=== PATIENT | male | born 1950 | race Caucasian/White ===

== ENCOUNTER 2022-01-26 09:18 | Day surgery (SDC) | payer OTHER, MEDICARE ==
--- NOTE | 2022-01-23 16:18 | RAD REPORT ---
EXAM DESCRIPTION: RAD - Chest Pa And Lat (2 Views) - 01/23/2022 4:11 pm CLINICAL HISTORY: pre op for surgery Chest pain. COMPARISON: Chest Pa And Lat (2 Views) dated 01/12/2020 FINDINGS: The lungs are clear. The heart is normal in size. No displaced fractures. IMPRESSION: No acute or concerning finding suspected.
[2022-01-23 16:24] LABS: Absolute Lymphocytes (CBC) 1.4 K/uL (0.7-4.9); Hematocrit 32.7 % (39.6-49.0); Lymphocytes % 26.5 % (15.3-44.8); MPV 8.8 fL (7.6-11.3)
[2022-01-23 16:31] LABS: Potassium 3.9 mmol/L (3.5-5.1)
--- NOTE | 2022-01-24 07:13 | EKG ---
Test Date: 2022-01-23 Test Time: 14:52:12 [employer]: ULISES MEASUREMENT RESULTS: Intervals: Rate: 54 VA: 188 QRSD: 114 QT: 446 QTc: 422 [place]: P: 64 VA: 188 QRS: -7 T: 12 INTERPRETIVE STATEMENTS: Sinus bradycardia Low voltage QRS Nonspecific ST abnormality Abnormal ECG No previous ECG available for comparison Electronically Signed On 01-24-22 07:09:40 CDT by Freddie Fernandez
[2022-01-26] MEDS ORDERED: CEFAZOLIN/SWI 2gm 2 GM/20 ML SYR ONE (09:38)
[2022-01-26] MEDS ORDERED: Ringers Lactate 1,000 ML IV ONE (09:38)
[2022-01-26] MEDS ORDERED: CELECOXIB 100 MG CAPSULE ONE (12:08)
[2022-01-26] MEDS ORDERED: ACETAMINOPHEN 500 MG TAB ONE (12:08)
[2022-01-26 12:41] LABS: Protime INR 1.28
[2022-01-26] MEDS ORDERED: FENTANYL CITR 100 MCG/2 ML ONE ×2 (12:48→14:32)
[2022-01-26] MEDS ORDERED: propofoL 200 MG/20 ML VIAL IV ONE (12:48)
[2022-01-26] MEDS ORDERED: MIDAZOLAM HCL 2 MG/2 ML INJ ONE (12:49)
[2022-01-26] MEDS ORDERED: ROCURONIUM 50 MG/5 ML VIAL IV ONE (12:49)
[2022-01-26] MEDS ORDERED: LIDOCAINE 2% MPF 5 ML VIAL ONE (12:49)
[2022-01-26] MEDS ORDERED: BUPIVACAINE 0.25% PF 10 ML VIAL ONE (12:51)
[2022-01-26] MEDS ORDERED: ONDANSETRON 4 MG/2 ML VIAL ONE (12:51)
[2022-01-26] MEDS ORDERED: KETOROLAC 30 MG/ML INJ ONE (14:29)
[2022-01-26] MEDS ORDERED: dexAMETHasone 10 MG/ML VIAL ONE (14:29)
[2022-01-26] MEDS ORDERED: GLYCOPYRROLATE 0.2 MG/ML SYR ONE (14:45)
--- NOTE | 2022-01-26 14:57 | P.OP ---
Preoperative diagnosis: Bilateral Inguinal Hernia with small bowel incarceration Postoperative diagnosis: Bilateral Inguinal Hernia with small bowel incarceration Primary procedure: Open Bilateral Inguinal hernia repair with mesh Anesthesia: GETA + Local Estimated blood loss: <20cc Specimen: RIGHT hernia sack / cord lipoma, LEFT cord lipoma Findings: LARGE Right inguinal hernia with small bowel, left fat containing hernia Complications: None Implants: Bard Perfix Large plug and patch on LEFT, Small Perfix on RIGHT Transferred to: Recovery Room Condition: Good
[2022-01-26 16:14] VITALS: BP 152/60; TEMP 96.9; O2SAT 99
[2022-01-26] MEDS ORDERED: HYDROCODONE/APAP 5/325 MG TAB ONE (16:43)
--- NOTE | 2022-01-27 01:18 | OP ---
Date of Procedure: 01/26/2022 Surgeon: Philip Genao MD, Preoperative Diagnosis: Bilateral inguinal hernias with small bowel incarceration on right and fat i ncarceration on the left. Postoperative Diagnosis: Bilateral inguinal hernias with small bowel incarceration on right and fat incarceration on the left. Procedure Performed: Open bilateral inguinal hernia repair with mesh plug and patch system utilized. Anesthesia: General endotracheal plus local with 0.25% Marcaine. Estimated Blood Loss: Less than 20 mL. Specimen: 1.Right hernia sac and cord lipoma. 2.Left cord lipoma. Findings: 1.Large right indirect inguinal hernia with sac containing small bowel requiring adhesiolysis and re duction of small bowel back to the intraperitoneal space. 2.Left fat-containing inguinal hernia. 3.External oblique aponeurosis was thin and friable bilaterally. Implants: Bard PerFix large plug and patch hernia repair system on right, left was a small Bard PerF ix hernia plug and patch system. Disposition: Patient was transferred to the recovery room in good condition. Procedure In Detail: After informed consent was obtained, the patient was brought to the operating r oom, prepped and draped in the usual sterile fashion. After adequate anesthesia was achieved, I made an inguinal incision on the right side down to subcutaneous tissues. I dissected down through Campe r fat and Sandy fascia to expose the external oblique aponeurosis, which was found to be quite thin and friable. I opened this sharply and dissected down circumferentially after opening in its entiret y protecting the ilioinguinal nerve, I dissected down circumferentially around the spermatic cord and structures and located a large hernia sac. The hernia sac was dissected free from the spermatic cor d and structures using the combination of electrocautery and blunt dissection. Ultimately, after the hernia sac was mobilized, I open the hernia sac to reduce the incarcerated small bowel back to the i ntraperitoneal compartment with simple reduction after adhesiolysis performed of the hernia sac. The hernia sac was then ligated, imbricated, and sewn closed in a running fashion with a 2-0 PDS suture and reducing the preperitoneal space. At this point, a large Bard PerFix hernia plug system was brou ght into the field, hydrated appropriately and placed in the preperitoneal space, fanned out appropri ately, and secured using 2-0 PDS sutures. At this point, I then brought the hernia patch system and placed it below the spermatic cord structures, reconstitute the deep ring by securing the pubic tuber sarina and making the deep inguinal ring with a 2-0 PDS suture. Lateral edges were quite thin and friab le, as such I did not choose to secure these at this point either medially or laterally. At this poi nt, I irrigated the area copiously and closed the residual external oblique aponeurosis as well as de ep Camper fat and Sandy fascia with a 3-0 Vicryl suture in an interrupted fashion. I closed the malcolm p dermal layer using 3-0 Vicryl suture and the skin was then closed with a 4-0 Monocryl fashion. Benji mabond was placed over top. I then turned my attention to the left side, in a similar fashion made a dissection to the skin using a 15 blade down to subcutaneous tissue. After appropriate anesthetizin g skin in the inguinal area, I then dissected down through the Camper fat and Sandy fascia to expose the external oblique aponeurosis, which once again was found to be quite thin and friable. I opened it sharply and opened in its entirety protecting the ilioinguinal nerve. I then dissected down to t he spermatic cord and structures and encircled this with a [place] drain. I was able to find the her brenda sac at this point, which is small and only containing fat. At this point, I opened the hernia sa c and removed the fat and sent it off for pathologic examination. I then imbricated the sac in a sim ilar fashion using a 2-0 PDS, reduced the sac to the preperitoneal space and placed a small Bard PerF ix plug into this preperitoneal space and secured it with a single 2-0 PDS suture. I then brought th e hernia patch on, sized it appropriately, and reconstituted the inguinal ring and after placing the patch under the spermatic cord and structures, I secured the pubic tubercle and then used a simple 2- 0 PDS and similarly reconstitute the deep inguinal ring with a 2-0 PDS suture. Once again, the media l and lateral shelving edges were quite thin and friable, as such I opted not to secure the mesh to t he medial and lateral shelving edge at this point due to the friability of the tissue planes. I then irrigated the area copiously and closed the external oblique aponeurosis; even though it is thin, al beit with a 3-0 Vicryl suture. Camper's fat and Sandy fascia were closed en bloc with 3-0 Vicryl reese ture in a running fashion and the deep dermal plane was closed using interrupted 3-0 Vicryl suture an d the skin was closed with a 4-0 Monocryl in a running fashion. Dermabond was placed over top. The patient tolerated the procedure well without evidence of complication, transferred to PACU in good co ndition. All counts were correct at the end of the case. SOLE/LEAH Voice ID: [id number] Report ID: [id number]
== END 2022-01-26 17:45 | disposition home or self-care (01) ==
LOC: OR 09:18
PROVIDERS: ATTEND Surgery
PROC: 0YUA0JZ Supplement Bilateral Inguinal Region with Synthetic Substitute, Open Approach (ICD-10-PCS; principal; 2022-01-26 12:15)
DX: K40.00 Bilateral inguinal hernia, with obstruction, without gangrene, not specified as recurrent (principal); Z20.822 Contact with and (suspected) exposure to COVID-19
CPT/HCPCS: 93005; 85025; 80048; 36415 ×2; 85610; 88302; 71046; 49507; U0003; J2704; J2250; J3010 ×2; J1100; J0690; J7120; J2405